=== PATIENT | male | born 1975 | race African-American/Black ===

== ENCOUNTER → 2016-08-26 | Emergency (ER) | payer SELFPAY | END | disposition left against medical advice (07) | LOC: ER 06:37 | DX: R07.9 Chest pain, unspecified (principal); Z53.21 Procedure and treatment not carried out due to patient leaving prior to being seen by health care provider ==

== ENCOUNTER 2016-11-24 11:36 | Emergency (ER) | payer SELFPAY ==
[~2016-11-24] VITALS: Ht 175.3 cm; Wt 63.5 kg
[2016-11-24 15:04] VITALS: BP 124/84
[2016-11-24] MEDS: cefTRIAXone SODIUM 250 MG VL IM ONE (15:56)
== END 2016-11-24 15:59 | disposition home or self-care (01) ==
LOC: ER 11:36
DX: A54.9 Gonococcal infection, unspecified (principal); A64 Unspecified sexually transmitted disease
CPT/HCPCS: 96372; 99283; J0696

== ENCOUNTER 2017-08-22 00:21 | Emergency (ER) | payer MEDICAID ==
[~2017-08-22] VITALS: Ht 162.6 cm; Wt 65.8 kg
[2017-08-22 03:10] VITALS: BP 123/81
[2017-08-22] MEDS ORDERED: KETOROLAC TROMETH 60MG/2ML VIAL IM ONE (03:45)
[2017-08-22] MEDS ORDERED: cefTRIAXone 1GM/10ml IVPUSH 10 ML IV ONE (03:45)
[2017-08-22] MEDS ORDERED: DEXAMETHASONE SOD PHOS 10MG/1ML VIAL INJ IM ONE (03:45)
== END 2017-08-22 04:19 | disposition home or self-care (01) ==
LOC: ER 00:21
DX: J03.80 Acute tonsillitis due to other specified organisms (principal); B96.89 Other specified bacterial agents as the cause of diseases classified elsewhere
CPT/HCPCS: 96372; 96374; 99284; J1100; J1885

== ENCOUNTER 2017-11-23 04:02 | Emergency (ER) | payer SELFPAY ==
[~2017-11-23] VITALS: Ht 175.3 cm; Wt 63.5 kg
[2017-11-23 04:28] LABS: Urine Bacteria NONE SEEN /hpf (None Seen); Urine Blood Negative /uL (Negative); Urine Mucus FEW (None Seen); Urine Specific Gravity 1.027 (1.001-1.035); Urine WBC 1 /hpf (0 - 3)
[2017-11-23 06:32] LABS: Basophils # (auto) 0 uL; Basophils % (auto) 0.4 % (0.0-2.0); Eosinophils # (auto) 0.1 uL; Eosinophils % (auto) 0.8 % (0.0-7.0); Hematocrit 39.6 % (41.0-53.0); Hemoglobin 13.1 g/dL (13.5-17.5); Lymphocytes # (auto) 4.7 uL; Lymphocytes % (auto) 48.7 % (10.0-50.0); Mean Corpuscular Hemoglobin 29.2 pg (28.0-32.0); Mean Corpuscular Hgb Conc. 33.2 g/dL (32.0-36.0); Mean Corpuscular Volume 87.9 fL (80.0-100.0); Monocytes # (auto) 0.9 uL; Monocytes % (auto) 9.2 % (0.0-12.0); Neutrophils # (auto) 3.9 uL; Neutrophils % (auto) 40.9 % (37.0-80.0); Nucleated Red Blood Cells % 0.2 %; Platelet Count (auto) 245 10^3/uL (140-450); Red Blood Cells 4.51 10^6/uL (4.5-5.90); Red Cell Distribution Width 13.8 % (11.8-14.3); White Blood Cell 9.5 10^3/uL (4.4-10.8)
[2017-11-23 06:49] LABS: Albumin 3.4 g/dL (3.4-5.0); BUN/Creatinine Ratio 8.9; Calcium 8.6 mg/dL (8.5-10.1); Potassium 4.1 mmol/L (3.5-5.1)
[2017-11-23 06:51] LABS: Bilirubin, Total 0.3 mg/dL (0.2-1.0); Total Protein 9.5 g/dL (6.4-8.2)
[2017-11-23 07:53] VITALS: BP 113/68
== END 2017-11-23 07:55 | disposition home or self-care (01) ==
LOC: ER 04:03
DX: N43.3 Hydrocele, unspecified (principal)
CPT/HCPCS: 36415; 74176; 80053; 81001; 82150; 83690; 85025

== ENCOUNTER 2017-12-01 00:13 | Emergency (ER) | payer SELFPAY ==
[~2017-12-01] VITALS: Ht 175.3 cm; Wt 63.5 kg
[2017-12-01] MEDS ORDERED: IBUPROFEN 600 MG TAB PO ONE ×2 (00:34→00:45)
[2017-12-01 00:35] VITALS: BP 126/76
== END 2017-12-01 03:45 | disposition left against medical advice (07) ==
LOC: EDBD 00:13 → ER 00:21
DX: M79.672 Pain in left foot (principal); Z53.21 Procedure and treatment not carried out due to patient leaving prior to being seen by health care provider
CPT/HCPCS: 73610; 73630

== ENCOUNTER 2018-05-11 20:13 | Emergency (ER) | payer MEDICAID ==
[~2018-05-11] VITALS: Ht 175.3 cm; Wt 63.5 kg
[2018-05-11 21:25] LABS: Basophils # (auto) 0 uL; Basophils % (auto) 0.6 % (0.0-2.0); Eosinophils # (auto) 0 uL; Eosinophils % (auto) 0.8 % (0.0-7.0); Hematocrit 43.4 % (41.0-53.0); Hemoglobin 14.3 g/dL (13.5-17.5); Lymphocytes # (auto) 1.9 uL; Lymphocytes % (auto) 34.2 % (10.0-50.0); Mean Corpuscular Hemoglobin 28.8 pg (28.0-32.0); Mean Corpuscular Volume 87.4 fL (80.0-100.0); Monocytes # (auto) 0.6 uL; Monocytes % (auto) 10.5 % (0.0-12.0); Neutrophils # (auto) 2.9 uL; Neutrophils % (auto) 53.9 % (37.0-80.0); Nucleated Red Blood Cells % 0.2 %; Platelet Count (auto) 235 10^3/uL (140-450); Red Blood Cells 4.96 10^6/uL (4.5-5.90); Red Cell Distribution Width 14.9 % (11.8-14.3); White Blood Cell 5.4 10^3/uL (4.4-10.8)
[2018-05-11 21:34] LABS: Albumin 3.2 g/dL (3.4-5.0); BUN/Creatinine Ratio 7.2; Calcium 8.1 mg/dL (8.5-10.1); Potassium 3.5 mmol/L (3.5-5.1)
[2018-05-11 21:37] LABS: Bilirubin, Total 0.2 mg/dL (0.2-1.0); Total Protein 8.4 g/dL (6.4-8.2)
[2018-05-11] MEDS ORDERED: LORazepam 2MG/ML-1ML VIAL IV ONE (22:00)
[2018-05-11] MEDS ORDERED: ONDANSETRON HCL 4 MG/2 ML VIAL IV ONE (22:15)
[2018-05-11 22:47] VITALS: BP 127/76
== END 2018-05-11 21:56 | disposition home or self-care (01) ==
LOC: ER 20:22
DX: F45.8 Other somatoform disorders (principal); F41.9 Anxiety disorder, unspecified; K21.9 Gastro-esophageal reflux disease without esophagitis; R42 Dizziness and giddiness
CPT/HCPCS: 36415; 71045; 80053; 84484; 85025; 93005; 94761; 96374; 96375; 99284; J2060; J2405

== ENCOUNTER 2018-09-26 11:35 | Emergency (ER) | payer MEDICAID ==
[~2018-09-26] VITALS: Ht 175.3 cm; Wt 74.8 kg
[2018-09-26 13:26] VITALS: BP 119/76
[2018-09-26] MEDS ORDERED: cefTRIAXone SOD 1,000 MG VL IM ONE (13:45)
[2018-09-26] MEDS ORDERED: diphenhdrAMINE HCL 25 MG CAP PO ONE (13:45)
[2018-09-26] MEDS ORDERED: methylPREDNISolone SOD SUCC 125 MG/2 ML VL IM ONE (13:45)
[2018-09-26] MEDS ORDERED: KETOROLAC TROMETH 60MG/2ML VIAL IM ONE (13:45)
[2018-09-26] MEDS ORDERED: IOHEXOL 300 MG/ML 100ML BOTTLE IJ ONE (13:49)
== END 2018-09-26 17:06 | disposition home or self-care (01) ==
LOC: ER 11:35
DX: J02.9 Acute pharyngitis, unspecified (principal); K12.2 Cellulitis and abscess of mouth; Z88.5 Allergy status to narcotic agent
CPT/HCPCS: 70491; 96372; 99284; J0696; J1885; J2930; Q9967

== ENCOUNTER 2018-10-18 23:53 | Emergency (ER) | payer MEDICAID ==
[~2018-10-18] VITALS: Ht 175.3 cm; Wt 74.8 kg
[2018-10-19 00:05] VITALS: BP 133/73
== END 2018-10-19 06:25 | disposition left against medical advice (07) ==
LOC: ER 23:57
DX: M79.672 Pain in left foot (principal); M79.671 Pain in right foot; Z53.21 Procedure and treatment not carried out due to patient leaving prior to being seen by health care provider

== ENCOUNTER → 2019-09-30 | Emergency (ER) | payer MEDICAID ==
[~2019-09-30] VITALS: Ht 175.3 cm; Wt 79.4 kg
[~2019-09-30] MED LIST: ASPirin 81 mg TAB PO ONE; ASPirin 81 mg TAB PO SCH; ATORVASTATIN 20 MG TAB PO SCH; ENOXAPARIN SOD 40 MG/0.4 ML SYRINGE SC SCH; MORPHINE SULF INJ 2 MG/ML SYRINGE 1ML IV PRN; NITROGLYCERIN 0.4 MG SL TAB SL PRN; POTASSIUM CHL 20MEQ/100ML 100 ML IV ONE
[2019-09-30 13:02] LABS: Basophils # (auto) 0 10 ^3/uL (0-0.2); Basophils % (auto) 0.4 % (0.0-2.0); Eosinophils # (auto) 0 10 ^3/uL (0-0.8); Eosinophils % (auto) 1.1 % (0.0-7.0); Hematocrit 41.6 % (41.0-53.0); Hemoglobin 14.3 g/dL (13.5-17.5); Lymphocytes # (auto) 2.1 10 ^3/uL (0.4-5.4); Lymphocytes % (auto) 45.6 % (10.0-50.0); Mean Corpuscular Hemoglobin 30.2 pg (28.0-32.0); Mean Corpuscular Hgb Conc. 34.5 g/dL (32.0-36.0); Mean Corpuscular Volume 87.6 fL (80.0-100.0); Monocytes # (auto) 0.5 10 ^3/uL (0-1.3); Monocytes % (auto) 11.7 % (0.0-12.0); Neutrophils # (auto) 1.9 10 ^3/uL (1.6-8.6); Neutrophils % (auto) 41.2 % (37.0-80.0); Nucleated Red Blood Cells % 0.1 %; Platelet Count (auto) 271 10^3/uL (140-450); Red Blood Cells 4.75 10^6/uL (4.5-5.90); Red Cell Distribution Width 13.6 % (11.8-14.3); White Blood Cell 4.6 10^3/uL (4.4-10.8)
[2019-09-30 13:18] LABS: Alanine Aminotransferase 31 U/L (16-61); Albumin 3.7 g/dL (3.4-5.0); Anion Gap 11 (5-15); Aspartate Aminotransferase 14 U/L (15-37); BUN/Creatinine Ratio 8.3; Blood Urea Nitrogen 9 mg/dL (7-18); Calcium 8.8 mg/dL (8.5-10.1); Carbon Dioxide 20 mmol/L (21-32); Chloride 109 mmol/L (98-107); GFR African American 96 mL/min; GFR Non-African American 79 mL/min; Glucose 107 mg/dL (74-106); Potassium 3.4 mmol/L (3.5-5.1); Sodium 140 mmol/L (136-145)
[2019-09-30 13:23] LABS: Alkaline Phosphatase 104 U/L (45-117); Bilirubin, Total 0.3 mg/dL (0.2-1.0); Total Protein 7.8 g/dL (6.4-8.2)
[2019-09-30 14:46] VITALS: BP 120/85
== END | disposition left against medical advice (07) ==
LOC: ER 12:19 → TELE 12:20 → UNDOADMIN 12:20
DX: I63.9 Cerebral infarction, unspecified (principal); F12.10 Cannabis abuse, uncomplicated; B20 Human immunodeficiency virus [HIV] disease; F15.10 Other stimulant abuse, uncomplicated; F17.210 Nicotine dependence, cigarettes, uncomplicated
CPT/HCPCS: 36415; 70450; 70551; 80053; 83735; 84484; 85025; 93005; 99291

== ENCOUNTER 2020-02-05 23:23 | Emergency (ER) | payer MEDICAID ==
[~2020-02-05] VITALS: Ht 175.3 cm; Wt 74.8 kg
[2020-02-05 23:33] VITALS: BP 140/92
== END 2020-02-06 00:01 | disposition left against medical advice (07) ==
LOC: ER 23:23
DX: R07.89 Other chest pain (principal); Z53.21 Procedure and treatment not carried out due to patient leaving prior to being seen by health care provider
CPT/HCPCS: 93005

== ENCOUNTER 2020-03-28 09:12 | Emergency (ER) | payer MEDICAID ==
[~2020-03-28] VITALS: Ht 175.3 cm; Wt 81.6 kg
[2020-03-28 10:00] VITALS: BP 100/58
== END 2020-03-28 10:42 | disposition home or self-care (01) ==
LOC: ER 09:12
DX: R10.84 Generalized abdominal pain (principal); F15.10 Other stimulant abuse, uncomplicated; F17.210 Nicotine dependence, cigarettes, uncomplicated; F12.10 Cannabis abuse, uncomplicated; Z21 Asymptomatic human immunodeficiency virus [HIV] infection status

== ENCOUNTER 2021-02-15 07:22 | Emergency (ER) | payer MEDICAID ==
[~2021-02-15] VITALS: Ht 175.3 cm; Wt 77.1 kg
[2021-02-15 09:00] LABS: Basophils # (auto) 0.1 10 ^3/uL (0-0.2); Basophils % (auto) 0.9 % (0.0-2.0); Eosinophils # (auto) 0.1 10 ^3/uL (0-0.8); Eosinophils % (auto) 0.8 % (0.0-7.0); Hematocrit 40.9 % (41.0-53.0); Lymphocytes # (auto) 2.2 10 ^3/uL (0.4-5.4); Lymphocytes % (auto) 37.7 % (10.0-50.0); Mean Corpuscular Hemoglobin 28.9 pg (28.0-32.0); Mean Corpuscular Hgb Conc. 34.2 g/dL (32.0-36.0); Mean Corpuscular Volume 84.7 fL (80.0-100.0); Monocytes # (auto) 0.4 10 ^3/uL (0-1.3); Monocytes % (auto) 7.4 % (0.0-12.0); Neutrophils # (auto) 3.2 10 ^3/uL (1.6-8.6); Neutrophils % (auto) 53.2 % (37.0-80.0); Nucleated Red Blood Cells % 0.1 %; Red Blood Cells 4.82 10^6/uL (4.5-5.90); Red Cell Distribution Width 13.2 % (11.8-14.3)
[2021-02-15 09:17] LABS: INR 0.97 (0.9-1.15); Partial Thromboplastin Time 28.2 sec (23.6-33.0)
[2021-02-15 09:18] LABS: Albumin 3.8 g/dL (3.4-5.0); Anion Gap 6 (5-15); Blood Urea Nitrogen 6 mg/dL (7-18); Carbon Dioxide 27 mmol/L (21-32); Chloride 107 mmol/L (98-107); Glucose 90 mg/dL (74-106); Magnesium 2.5 mg/dL (1.6-2.6); Potassium 3.5 mmol/L (3.5-5.1); Sodium 140 mmol/L (136-145)
[2021-02-15 09:24] LABS: Alanine Aminotransferase 34 U/L (16-61); Alkaline Phosphatase 143 U/L (45-117); Aspartate Aminotransferase 24 U/L (15-37); BUN/Creatinine Ratio 6.7; Bilirubin, Total 0.2 mg/dL (0.2-1.0); GFR African American 118 mL/min; GFR Non-African American 98 mL/min; Total Protein 7.8 g/dL (6.4-8.2)
[2021-02-15 10:56] VITALS: BP 135/75
== END 2021-02-15 10:57 | disposition home or self-care (01) ==
LOC: ER 07:22
DX: R00.2 Palpitations (principal); F41.9 Anxiety disorder, unspecified; F17.210 Nicotine dependence, cigarettes, uncomplicated; Z88.5 Allergy status to narcotic agent
CPT/HCPCS: 36415; 71045; 80053; 83735; 84484; 85025; 85610; 85730; 93005

== ENCOUNTER 2024-10-29 08:49 | Emergency (ER) | payer MEDICAID ==
[~2024-10-29] VITALS: Ht 175.3 cm; Wt 74.6 kg
[2024-10-29 09:57] VITALS: PULSE 100; RESP 17; O2SAT 100
[2024-10-29] MEDS: SODIUM CHLORIDE 0.9% 1,000 ML IV ONE (10:12)
--- NOTE | 2024-10-29 10:13 | ED.PDOC ---
History of Present Illness HPI Comments 49M presents to the ER w/ prior MHx of Anxiety, Cancer, Depression, HIV and the c/c of Constipation. Pt reports on being constipated for 14 days and during the 14 days , has had /D x2. Pt states that he did go to the ER and was given antibiotics. Pt notes on having "bad ABD Pain" as well as night sweats. Pt notes the pain type of a 9/10. Social Hx of Tobacco use, but denies alcohol and substance use. Denies chills, fever, N/V, SOB, CP. No other associated symptoms, modifiers, recent injuries or sick contacts present at this time. Chief Complaint: Constipation Time Seen by MD: 09:30 Primary Care Provider: UNKNOWN Reviewed Notes: Nurses Notes, Medications, Allergies Allergies: Coded Allergies: Morphine (Verified Allergy, Intermediate, ITCHING, 05/11/18) Information Source: Patient Mode of Arrival: Ambulatory Severity: Moderate Timing: Days Duration: Since onset, Days Prehospital treatment: None Past Medical History PAST MEDICAL HISTORY: Anxiety, Cancer, Depression, HIV Surgical History: Denies all surgeries Family History Family History: Reviewed,noncontributory to illness, Unknown Social History Smoker: Cigarettes Alcohol: Unknown Drugs: Unknown Lives In: Home Constitutional: denies: chills, diaphoresis, fatigue, fever, malaise, sweats, weakness, others EENTM: denies: blurred vision, double vision, ear bleeding, ear discharge, ear drainage, ear pain, ear ringing, eye pain, eye redness, hearing loss, mouth pain, mouth swelling, nasal discharge, nose bleeding, nose congestion, nose pain, photophobia, tearing, throat pain, throat swelling, voice changes, others Respiratory: denies: cough, hemoptysis, orthopnea, SOB at rest, shortness of breath, SOB with excertion, stridor, wheezing, others Cardiovascular: denies: chest pain, dizzy spells, diaphoresis, Dyspnea on exertion, edema, irregular heart beat, left arm pain, lightheadedness, palpitations, PND, syncope, others Gastrointestinal: reports: abdominal pain, constipated, diarrhea; denies: abdomen distended, blood streaked bowels, dysphagia, difficulty swallowing, hematemesis, melena, nausea, poor appetite, poor fluid intake, rectal bleeding, rectal pain, vomiting, others Genitourinary: denies: burning, dysuria, flank pain, frequency, hematuria, i ncontinence, penile discharge, penile sore, pain, testicle pain, testicle swelling, urgency, others Neurological: denies: dizziness, fainting, headache, left sided numbness, left sided weakness, numbness, paresthesia, pre-existing deficit, right sided numbness, right sided weakness, seizure, speech problems, tingling, tremors, weakness, others Musculoskeletal: denies: back pain, gout, joint pain, joint swelling, muscle pain, muscle stiffness, neck pain, others Integumetry: denies: bruises, change in color, change in hair/nails, dryness, laceration, lesions, lumps, rash, wounds, others Allergic/Immunocompromised: denies: Difficulty Healing, Frequent Infections, Hives, Itching, others Hematologic/Lymphatic: denies: anemia, blood clots, easy bleeding, easy bruising, swollen glands, others Endocrine: denies: excessive hunger, excessive sweating, excessive thirst, excessive urination, flushing, intolerance to cold, intolerance to heat, unexplained weight gain, unexplained weight loss, others Psychiatric: denies: anxiety, bipolar disorder, depression, hopeless, panic disorder, schizophrenia, sleepless, suicidal, others All Other Systems: Reviewed and Negative Physical Exam General Appearance: Moderate Distress, Normal HEENT: Normal ENT Inspection, Pharynx Normal, TMs Normal Neck: Full Range of Motion, Non-Tender, Normal, Normal Inspection Respiratory: Chest Non-Tender, Lungs Clear, No Accessory Muscle Use, No Respiratory Distress, Normal Breath Sounds Cardiovascular: No Edema, No JVD, No Murmur, No Gallop, Normal Peripheral Pulses, Regular Rate/Rhythm Breast Exam: Deferred Gastrointestinal: No Organomegaly, Non Tender, No Pulsatile Mass, Normal Bowel Sounds, Soft Genitalia: Deferred Pelvic: Deferred Rectal: Deferred Extremities: No calf tenderness, Normal capillary refill, Normal inspection, Normal range of motion, Non-tender, No pedal edema Musculoskeletal : Apperance: Normal Neurologic: Alert, automation qtp tester II-XII nml as Tested, No Motor Deficits, Normal Affect, Normal Mood, No Sensory Deficits Cerebellar Function: Normal Reflexes: Normal Skin: Dry, Normal Color, Warm Peripheral Pulses: 3+ Radial (R), 3+ Radial (L) Lymphatic: No Adenopathy Was a procedure done? Was a procedure done?: No Differential Dx Considerations may include: Anemia Electrolyte imbalance X-Ray, Labs, Meds, VS Vital Signs Date Time Temp Pulse Resp B/P (MAP) Pulse Ox O2 Delivery O2 Flow Rate FiO2 10/29/24 09:57 100 17 100 Room Air* 0 21 10/29/24 09:55 98.0 100 17 146/98 (114) 100 98.0 10/29/24 09:14 98.3 85 18 159/98 (118) 100 98.3 Lab Test 10/29/24 11:00 10/29/24 10:38 Range/Units Urine Color Pending Urine Clarity Pending Urine pH Pending Urine Specific Anthony Pending Urine Protein Pending Urine Ketones Pending Urine Blood Pending Urine Nitrite Pending Urine Bilirubin Pending Urine Urobilinogen Pending Urine Leukocyte Esterase Pending Urine RBC Pending Urine Microscopic WBC Pending Urine Squamous Epithelial Cells Pending Urine Bacteria Pending Urine Glucose Pending White Blood Count 7.5 4.4-10.8 10^3/uL Red Blood Count 4.31 L 4.5-5.90 10^6/uL Hemoglobin 12.8 L 13.5-17.5 g/dL Hematocrit 37.6 L 41.0-53.0 % Mean Corpuscular Volume 87.4 80.0-100.0 fL Mean Corpuscular Hemoglobin 29.7 28.0-32.0 pg Mean Corpuscular Hemoglobin Concent 34.0 32.0-36.0 g/dL Red Cell Distribution Width 14.1 11.8-14.3 % Platelet Count 373 140-450 10^3/uL Mean Platelet Volume 7.7 6.9-10.8 fL Neutrophils (%) (Auto) 61.3 37.0-80.0 % Lymphocytes (%) (Auto) 28.6 10.0-50.0 % Monocytes (%) (Auto) 8.6 0.0-12.0 % Eosinophils (%) (Auto) 1.0 0.0-7.0 % Basophils (%) (Auto) 0.5 0.0-2.0 % Neutrophils # (Auto) 4.6 1.6-8.6 10 ^3/uL Lymphocytes # (Auto) 2.1 0.4-5.4 10 ^3/uL Monocytes # (Auto) 0.6 0-1.3 10 ^3/uL Eosinophils # (Auto) 0.1 0-0.8 10 ^3/uL Basophils # (Auto) 0 0-0.2 10 ^3/uL Nucleated Red Blood Cells 0.0 % Sodium Level Pending Potassium Level Pending Chloride Level Pending Carbon Dioxide Level Pending Anion Gap Pending Blood Urea Nitrogen Pending Creatinine Pending Glomerular Filtration Rate Calc Pending BUN/Creatinine Ratio Pending Serum Glucose Pending Calcium Level Pending Current Medications Medications (Trade) Dose Ordered Sig/Trevin Route Start Time Stop Time Status Last Admin Sodium Chloride 1,000 ml @ 1,000 mls/hr Q1H ONCE IV 10/29/24 10:00 10/29/24 10:59 DC 10/29/24 10:12 Ketorolac Tromethamine (Toradol Injection) 60 mg ONCE ONCE IM 10/29/24 10:30 10/29/24 10:31 DC 10/29/24 10:32 Ondansetron HCl (Zofran) 4 mg ONCE ONCE IV 10/29/24 10:30 10/29/24 10:31 DC 10/29/24 10:32 PROCEDURE(s): KUB - KUB ABDOMEN SINGLE VIEW REASON: constipation ORDER NUMBER(s): [id number], ACCESSION NUMBER(s): [id number] Exam: XY KUB ABDOMEN SINGLE VIEW Indication: constipation Comparison: None Technique: 2 radiographic views of the abdomen. Findings: Moderate colonic stool. Nonspecific bowel-gas pattern. There is no definite evidence for pneumoperitoneum. No abnormal calcifications noted. Impression: Moderate colonic stool. Nonspecific bowel-gas pattern. Patient alert. Complaining of generalized symptoms. Abdomen is soft nontender. Vitals stable. Answering questions. Possible anxiety. X-ray reviewed does show moderate stool. No acute process. No sepsis. Establish intravenous access. Was given fluids. Was given Toradol. Was told to drink plenty of fluids. No leg swelling. No shortness a breath. No chest pain. Counseled patient on effects of smoking cigarettes for 15 minutes. Explained to the patient. Was told to follow up with his primary care physician. Was told to come back if there is any problem. Time of 1ST Reevaluation: 10:00 Reevaluation 1ST: Unchanged Patient Education/Counseling: Diagnosis, Treatment, Prognosis Family Education/Counseling: No Family Present Departure 1 Departure Time of Disposition: 11:45 Impression: Primary Impression: Autonomic disorder Additional Impression: Irritable bowel syndrome Qualified Codes: K58.1 - Irritable bowel syndrome with constipation Disposition: 01 HOME / SELF CARE / HOMELESS Condition: Good Discharged With: Self Critical Care Note Critical Care Time?: No Stability Stability form required: No Heart Score Heart Score: Heart Score Response (Comments) Value History N/A 0 EKG N/A 0 Age N/A 0 Risk Factors N/A 0 Troponin N/A 0 Total 0 I personally scribed for JAH OTERO MD ([email or web address]) on 10/29/24 at 10:13. Electronically submitted by Cody Glover ([email or web address]). I personally scribed for JAH OTERO MD ([email or web address]) on 10/29/24 at 10:34. Electronically submitted by Cody Glover ([email or web address]). JAH OTERO MD October 29, 2024 10:13
--- NOTE | 2024-10-29 10:28 | DVH ---
Exam: XY KUB ABDOMEN SINGLE VIEW Indication: constipation Comparison: None Technique: 2 radiographic views of the abdomen. Findings: Moderate colonic stool. Nonspecific bowel-gas pattern. There is no definite evidence for pneumoperitoneum. No abnormal calcifications noted. Impression: Moderate colonic stool. Nonspecific bowel-gas pattern.
[2024-10-29] MEDS: KETOROLAC TROMETH 60MG/2ML VIAL IM ONE (10:32)
[2024-10-29] MEDS: ONDANSETRON HCL 4 MG/2 ML VIAL IV ONE (10:32)
[2024-10-29 11:05] LABS: Basophils # (auto) 0 10 ^3/uL (0-0.2); Basophils % (auto) 0.5 % (0.0-2.0); Eosinophils # (auto) 0.1 10 ^3/uL (0-0.8); Hematocrit 37.6 % (41.0-53.0); Hemoglobin 12.8 g/dL (13.5-17.5); Lymphocytes # (auto) 2.1 10 ^3/uL (0.4-5.4); Lymphocytes % (auto) 28.6 % (10.0-50.0); Mean Corpuscular Hemoglobin 29.7 pg (28.0-32.0); Mean Corpuscular Volume 87.4 fL (80.0-100.0); Monocytes # (auto) 0.6 10 ^3/uL (0-1.3); Monocytes % (auto) 8.6 % (0.0-12.0); Neutrophils # (auto) 4.6 10 ^3/uL (1.6-8.6); Neutrophils % (auto) 61.3 % (37.0-80.0); Platelet Count (auto) 373 10^3/uL (140-450); Red Blood Cells 4.31 10^6/uL (4.5-5.90); Red Cell Distribution Width 14.1 % (11.8-14.3); White Blood Cell 7.5 10^3/uL (4.4-10.8)
[2024-10-29 11:26] LABS: Urine Bacteria None Seen /hpf (None Seen)
[2024-10-29 11:37] LABS: Urine Blood Negative /uL (Negative); Urine Clarity Clear (Clear); Urine Color Light-Yellow (Yellow); Urine Protein, UAD Negative (Negative); Urine Specific Gravity 1.017 (1.001-1.035); Urine Squamous Epithelial Cell None Seen /hpf (<5); Urine Urobilinogen Normal (Negative); Urine WBC < 1 /HPF (0-3)
[2024-10-29 11:58] VITALS: BP 157/97; PULSE 88; RESP 20; TEMP 98; O2SAT 100
== END 2024-10-29 12:00 | disposition home or self-care (01) ==
LOC: ER 08:49
DX: G90.9 Disorder of the autonomic nervous system, unspecified (principal); K58.9 Irritable bowel syndrome, unspecified; F17.210 Nicotine dependence, cigarettes, uncomplicated; F41.9 Anxiety disorder, unspecified; F32.A Depression, unspecified; Z88.5 Allergy status to narcotic agent
CPT/HCPCS: 36415; 74018; 81001; 85025; 96361; 96372; 96374; 99284; J1885; J2405; J7030

== ENCOUNTER 2025-05-12 22:52 | Emergency (ER) | payer MEDICAID, OTHER | END 2025-05-12 23:07 | disposition left against medical advice (07) | LOC: ER 22:52 | DX: F99 Mental disorder, not otherwise specified (principal); Z79.899 Other long term (current) drug therapy ==

== ENCOUNTER 2025-05-13 14:48 | Emergency (ER) | payer OTHER, MEDICAID | END 2025-05-13 14:54 | disposition left against medical advice (07) | LOC: ER 14:48 | DX: R53.1 Weakness (principal); Z53.21 Procedure and treatment not carried out due to patient leaving prior to being seen by health care provider ==